=== PATIENT | female | born 1995 | race Caucasian/White ===

== ENCOUNTER 2023-06-28 15:34 | Emergency (ER) | payer OTHER, MEDICAID, SELFPAY ==
[2023-06-28 16:20] VITALS: BP 129/87; PULSE 82; RESP 16; TEMP 36.8; O2SAT 99; BMI 47.6
[2023-06-28 18:02] LABS: Basophils % 0.3 %; Eosinophils # 0.1 10^3/uL (0.0-0.8); Eosinophils % 0.8 %; Hematocrit 43.9 % (37.0-47.0); Hemoglobin 13.8 g/dL (11.5-15.3); Lymphocytes # 3.1 10^3/uL (0.8-4.8); Lymphocytes % 27.8 %; Mean Corpuscular HGB Conc 31.4 g/dL (30.0-36.0); Mean Corpuscular Hemoglobin 28.2 pg (28.0-34.0); Mean Corpuscular Volume 89.8 fl (81-99); Mean Platelet Volume 9.4 fL (7.4-10.4); Monocytes # 0.5 10^3/uL (0.2-0.9); Monocytes % 4.7 %; Neutrophils # 7.34 10^3/uL (1.8-7.7); Nucleated Red Blood Cells % 0 %; Platelet Count 308 10^3/cmm (130-400); Red Blood Count 4.89 10^6/uL (4.1-5.3); Red Cell Distribution Width 13.2 % (12.1-15.1); White Blood Count 11.1 10^3/uL (4.0-10.0)
--- NOTE | 2023-06-28 18:10 | ED_ITS ---
HPI - Abdominal Pain General: Chief Complaint: Abdominal Pain Stated Complaint: chest tightness, upper abd pain Time Seen by Provider: 06/28/23 18:09 History of Present Illness: 27-year-old female comes in today with mid abdominal pain radiating to the right shoulder and back area. Patient reports symptoms have been going on for about 3 to 4 days now. Patient reports some nausea but no vomiting. Patient has used some Ex-Lax with minimal relief of constipation. Patient reports decreased stool output which prompted her to treat with Ex-Lax. Patient appears nontoxic. Patient appears in no pain. Associated Symptoms: Reports constipation and nausea; Denies fever(s) Review of Systems Const: Denies: fever(s) Card: Reports: chest pain Resp: Denies: dyspnea GI: Reports: nausea and constipation : Denies: difficulty voiding Musc: Denies: back pain Skin/Breast: Denies: rash Physical Exam Const: COMMON NORMALS: alert HENMT: COMMON NORMALS: normocephalic HEAD & SCALP: normocephalic MOUTH: Normal oral and palatal mucosa present Neck/C-Spine: COMMON NORMALS: full ROM Resp: COMMON NORMALS: normal respiratory effort and clear to auscultation bilaterally AUSCULTATION: clear to auscultation bilaterally Cardio: COMMON NORMALS: regular rate and regular rhythm RATE: regular rate RHYTHM: regular rhythm : COMMON NORMALS: Yes no CVA tenderness BLADDER/KIDNEY EXAM: Yes no CVA tenderness Back/Pelvis: COMMON NORMALS: no CVA tenderness Extremity: COMMON NORMALS: normal to inspection and full ROM Neuro: SENSORIUM/ORIENTATION: Yes alert Skin: COMMON NORMALS: turgor normal GENERAL SKIN EXAM: turgor normal Course Vital Signs: Vital signs: Vital Signs Temperature 98.2 F 06/28/23 16:20 Pulse Rate 78 06/28/23 18:18 Respiratory Rate 18 06/28/23 18:18 Blood Pressure 153/97 06/28/23 18:18 Pulse Oximetry 94 06/28/23 18:18 Oxygen Delivery Me thod Room Air 06/28/23 18:18 MDM - Abdominal Pain Medical Decision Making 27-year-old female comes in today with complaints of epigastric pain radiating up into her chest, right back, and right shoulder. Patient reports symptoms for about 1 week now. Patient denies any fever. Patient appears nontoxic. Abdomen is soft with some tenderness in the mid epigastric and the right lower quadrant. Bowel sounds are hypoactive. No CVA tenderness is noted. Vital signs are normal. Differential diagnosis includes but not limited to gallbladder disease, pancreatitis, bowel obstruction, constipation, urinary tract infection, renal calculi. Laboratory values were unremarkable except for some mild leukocytosis at 11,000. Urinalysis was clean. CT of the abdomen and pelvis noted some mesenteric lymph nodes but otherwise no other findings. Suspect patient probably has a viral syndrome causing some mesenteric adenitis. Reviewed exam with patient and mother with recommendations for treatment and follow-up. They reported understanding and agreed to plan. Lab Data 06/28/23 17:39 06/28/23 17:39 Labs/Radiology: Radiology Impressions Abdomen/Pelvis CT 06/28/23 18:20 IMPRESSION: 1. Small mesenteric lymph nodes, some of which are clustered along the right psoas musculature. Findings are nonspecific in appearance but can be seen with mesenteric adenitis. 2. Additional findings, as above. COMMENTS: Consistent with the [employer]'s Incidental Findings Committee white paper (J Am Amrita Radiol 2018): Any incidental renal lesion less than 1 cm or classified as too small to characterize, or any incidental cystic renal lesion characterized as simple-appearing, is likely benign. No follow-up imaging is recommended for these lesions per consensus recommendations based on imaging criteria. Laboratory Results WBC 11.1 10^3/uL (4.0-10.0) H 06/28/23 17:39 RBC 4.89 10^6/uL (4.1-5.3) 06/28/23 17:39 Hgb 13.8 g/dL (11.5-15.3) 06/28/23 17:39 Hct 43.9 % (37.0-47.0) 06/28/23 17:39 MCV 89.8 fl (81-99) 06/28/23 17:39 MCH 28.2 pg (28.0-34.0) 06/28/23 17:39 MCHC 31.4 g/dL (30.0-36.0) 06/28/23 17:39 RDW 13.2 % (12.1-15.1) 06/28/23 17:39 Plt Count 308 10^3/cmm (130-400) 06/28/23 17:39 MPV 9.4 fL (7.4-10.4) 06/28/23 17:39 Neut % (Auto) 66.0 % 06/28/23 17:39 Lymph % (Auto) 27.8 % 06/28/23 17:39 [place] % (Auto) 4.7 % 06/28/23 17:39 Eos % (Auto) 0.8 % 06/28/23 17:39 Baso % (Auto) 0.3 % 06/28/23 17:39 Neut # (Auto) 7.34 10^3/uL (1.8-7.7) 06/28/23 17:39 Lymph # (Auto) 3.1 10^3/uL (0.8-4.8) 06/28/23 17:39 [place]alle # (Auto) 0.5 10^3/uL (0.2-0.9) 06/28/23 17:39 Eos # (Auto) 0.1 10^3/uL (0.0-0.8) 06/28/23 17:39 Baso # (Auto) 0.0 10^3/uL (0.0-0.1) 06/28/23 17:39 Nucleated RBC % (auto) 0 % 06/28/23 17: Nucleated RBCs # 0.0 /100WBC 06/28/23 17:39 Sodium 142 mmol/L (136-145) 06/28/23 17:39 Potassium 4.4 mmol/L (3.5-5.1) 06/28/23 17:39 Chloride 105 mmol/L (98-107) 06/28/23 17:39 Carbon Dioxide 24 mmol/L (22-29) 06/28/23 17:39 Anion Gap 17.4 (5-19) 06/28/23 17:39 BUN 10 mg/dL (6-20) 06/28/23 17:39 Creatinine 0.7 mg/dL (0.5-0.9) 06/28/23 17:39 GFR Calculation 100.4 mL/min (90-130) 06/28/23 17:39 Glucose 100 mg/dL (65-115) 06/28/23 17:39 Calculated Osmolality 293 mOsm/kg (285-295) 06/28/23 17:39 Calcium 9.6 mg/dL (8.5-10.5) 06/28/23 17:39 Total Bilirubin 0.2 mg/dL (0.15-1.2) 06/28/23 17:39 AST 14 U/L (0-32) 06/28/23 17:39 ALT 24 U/L (0-33) 06/28/23 17:39 Alkaline Phosphatase 74 U/L (35-105) 06/28/23 17:39 Total Protein 7.6 g/dL (6.6-8.7) 06/28/23 17:39 Albumin 4.5 g/dL (3.5-5.2) 06/28/23 17:39 Globulin 3.1 g/dL (1.3-4.6) 06/28/23 17:39 Lipase 22 U/L (13-60) 06/28/23 17:39 HCG, Qual Negative (Negative) 06/28/23 17:39 Discharge Plan Discharge Patient Disposition: Home Clinical Impression: Mesenteric adenitis Condition: Stable Discharge Orders: Discharge ED (Routine); Ordered 06/28/23 Ordered By: Wade Green Discharge Diet: Usual diet Discharge Activity: Increase activity as tolerated Patient Instructions: Mesenteric Adenitis (ED) Activity Restrictions/Additional Instructions: Mesenteric adenitis is most often a viral infection that runs its course within 2 weeks. He will have abdominal pain and some mild nausea. You can use acetaminophen or ibuprofen as needed for pain. Drink plenty of water and fluids. Increase diet as tolerated. Follow-up with primary care for further instructions. Return to the ER for worsening symptoms such as blood in vomit or stool, fever greater than 100.4, severe abdominal pain localizing to the right lower quadrant. Coding Level of Care Code ED Lead Systems Engineer for Constance Daley
[2023-06-28 18:18] VITALS: BP 153/97; PULSE 78; RESP 18; O2SAT 94
--- NOTE | 2023-06-28 18:20 | CTR_ITS ---
PROCEDURE INFORMATION: Exam: CT Abdomen And Pelvis With Contrast Exam date and time: 06/28/2023 6:46 PM Age: 27 years old Clinical indication: Abdominal pain; Patient HX: Epigastric pain with constipation x 2 days; Additional info: Epigastric pain, constipation TECHNIQUE: Imaging protocol: Computed tomography of the abdomen and pelvis with contrast. Axial, coronal and sagittal reformatted images were created and reviewed. Radiation optimization: All CT scans at this facility use at least one of these dose optimization techniques: automated exposure control; mA and/or kV adjustment per patient size (includes targeted exams where dose is matched to clinical indication); or iterative reconstruction. Contrast material: OMNI 350; Contrast volume: 100 ml; Contrast route: INTRAVENOUS (IV); REPORTING DATA: Count of CT and Cardiac NM exams in prior 12 months: This patient has received 0 known CTs and 0 known cardiac nuclear medicine studies in the 12 months prior to the current study. COMPARISON: No relevant prior studies available. RADIATION DOSE METRICS: Total DLP (mGy-cm): 1115.69 FINDINGS: Liver: Mild hepatomegaly. Mild, diffuse hepatic steatosis. Gallbladder and bile ducts: No radiodense gallstones. No biliary ductal dilatation. Pancreas: Unremarkable. Spleen: Unremarkable. Adrenal glands: Normal. No mass. Kidneys and ureters: 1 cm left renal cyst (no follow-up is indicated based on the imaging appearance). No radiodense calculi. No hydronephrosis. Stomach and bowel: No bowel wall thickening. No obstruction. No pneumatosis. Appendix: Normal. Intraperitoneal space: No free fluid. No organized fluid collection. No free air. Vasculature: Unremarkable. No aneurysm. Lymph nodes: Small mesenteric lymph nodes, some of which are clustered along the right psoas musculature. No pathologically enlarged lymph nodes. Urinary bladder: Unremarkable as visualized. Reproductive: Unremarkable. Bones/joints: No acute osseous abnormality. Mild degenerative changes. Soft tissues: Small, fat containing umbilical hernia. Small, fat containing umbilical hernia. CT/CT abdomen pelvis w con* [id number] IMPRESSION: 1. Small mesenteric lymph nodes, some of which are clustered along the right psoas musculature. Findings are nonspecific in appearance but can be seen with mesenteric adenitis. 2. Additional findings, as above. COMMENTS: Consistent with the [employer]'s Incidental Findings Committee white paper (J Am Amrita Radiol 2018): Any incidental renal lesion less than 1 cm or classified as too small to characterize, or any incidental cystic renal lesion characterized as simple-appearing, is likely benign. No follow-up imaging is recommended for these lesions per consensus recommendations based on imaging criteria.
[2023-06-28 18:24] LABS: Alanine Aminotransferase 24 U/L (0-33); Albumin Level 4.5 g/dL (3.5-5.2); Alkaline Phosphatase 74 U/L (35-105); Anion Gap 17.4 (5-19); Aspartate Amino Transferase 14 U/L (0-32); Blood Urea Nitrogen 10 mg/dL (6-20); Calcium 9.6 mg/dL (8.5-10.5); Carbon Dioxide 24 mmol/L (22-29); Chloride 105 mmol/L (98-107); Globulin 3.1 g/dL (1.3-4.6); Glomerular Filtration Rate 100.4 mL/min (90-130); Glucose 100 mg/dL (65-115); Lipase 22 U/L (13-60); Osmolality Calculated 293 mOsm/kg (285-295); Potassium 4.4 mmol/L (3.5-5.1); Sodium 142 mmol/L (136-145); Total Bilirubin 0.2 mg/dL (0.15-1.2); Total Protein 7.6 g/dL (6.6-8.7)
[2023-06-28 18:28] LABS: HCG, Serum Qual Negative (Negative)
[2023-06-28] MEDS: sodium chloride 0.9% 500 ML 999 ML IV (18:36)
[2023-06-28] MEDS: iohexol 350 mg/mL 500 mL Btl (per mL) IV (18:50)
== END 2023-06-28 19:45 | disposition home or self-care (01) ==
PROVIDERS: Physician Assistant; Emergency Provider Nurse Practitioner Family
DX: I88.0 Nonspecific mesenteric lymphadenitis (principal)
CPT/HCPCS: 36415; 74177; 80053; 83690; 84703; 85025; 99285; J7040; Q9967

== ENCOUNTER 2024-01-07 17:39 | Emergency (ER) | payer OTHER, SELFPAY ==
[2024-01-07 17:46] VITALS: BP 146/91; PULSE 109; RESP 16; TEMP 36.6; O2SAT 100; BMI 47.2
--- NOTE | 2024-01-07 18:08 | W.ED.WOUNDLC ---
HPI - Wound/Laceration General: Chief Complaint: Wound/Laceration Stated Complaint: right hand lac Time Seen by Provider: 01/07/24 17:59 History of Present Illness: 28-year-old female comes in today with a injury to the right hand. Patient reached for a knife that had fallen and accidentally stuck herself between her second and third digit of her right hand in the webbing. Patient denies any chronic medical problems. Patient appears nontoxic. Patient moves fingers without difficulty. Review of Systems General: Reports: 10 or more systems reviewed and unremarkable except in HPI and below Skin/Breast: Reports: new lesions (Right hand between the second and third digit) [facility] ED PFSH: Medical History (Updated 01/07/24 @ 19:03 by DIANE Calhoun) Allergic rhinitis due to allergen Morbid obesity with BMI of 45.0-49.9, adult Nicotine dependence due to vaping non-tobacco product Surgical History (Updated 07/16/23 @ 14:19 by Tim Landaverde MD) No pertinent past surgical history Family History (Updated 07/16/23 @ 14:12 by Grace España LPN) Father No problems noted. Mother Diabetes Prediabetic Hep C w/o coma, chronic Social History (Updated 07/16/23 @ 14:13 by Grace España LPN) Second hand smoke exposure: No Alcohol intake: former Substance/Drug Use: current Substance/Drug use frequency: few times a week Female Reproductive History: Date of last menstrual period: 12/19/23 Physical Exam Const: COMMON NORMALS: alert HENMT: COMMON NORMALS: normocephalic HEAD & SCALP: normocephalic Neck/C-Spine: COMMON NORMALS: full ROM Resp: COMMON NORMALS: normal respiratory effort and clear to auscultation bilaterally AUSCULTATION: clear to auscultation bilaterally Cardio: COMMON NORMALS: regular rate and regular rhythm RATE: regular rate RHYTHM: regular rhythm Extremity: COMMON NORMALS: normal to inspection Neuro: SENSORIUM/ORIENTATION: Yes alert Skin: TRAUMA: laceration (1 cm right hand webbing second and third digit) Procedures Laceration Laceration 1: Site: hand Side (If applicable): right Size (cm): 1 Description: linear Depth: simple, single layer Local Anesthetic: lidocaine 1% and with epi Amount of anesthesia used (mL): 2 Pre-repair: wound explored and irrigated extensively Skin layer closed with: nylon Size (cm): 5-0 Number of sutures: 1 Technique: horizontal mattress Course Vital Signs: Vital signs: Vital Signs Temperature 97.9 F 01/07/24 17:46 Pulse Rate 109 H 01/07/24 17:46 Respiratory Rate 16 01/07/24 17:46 Blood Pressure 146/91 01/07/24 17:46 Pulse Oximetry 100 01/07/24 17:46 MDM - Wound/Laceration Medical Decision Making 28-year-old female comes in today with injury to the right hand between the second and third digit. Patient has a 1 cm laceration to the webbing between the second and third digit of the right hand. Patient has good range of motion of the hand. No neurovascular dysfunction is noted. No tendon dysfunction is noted. No foreign bodies noted. No fractures noted. Wound was thoroughly irrigated with saline. Wound was closed with 1 horizontal mattress suture. Reviewed exam with patient with recommendations for keeping the wound dry following up for suture removal in 7 to 10 days. Differential diagnosis includes but not limited to foreign body, laceration, fracture, need for prophylaxis tetanus. Patient cannot recall her tetanus vaccine and it was updated. Patient be kept on cephalexin 500 twice a day for the next 7 days. Patient reported understanding of care plan need for follow-up or return to the ER. No radiology studies performed this visit Discharge Plan Discharge Patient Disposition: Home Clinical Impression: Laceration Condition: Stable Prescriptions: New cephalexin 500 mg capsule 500 mg PO BID 7 Days Qty: 14 0RF Discharge Orders: Discharge ED (Routine); Ordered 01/07/24 Ordered By: Wade Green Referrals: Tim Landaverde MD [Primary Care Provider] - Patient Instructions: Laceration (ED) Activity Restrictions/Additional Instructions: Keep wound clean and dry. Is very important keep the wound as dry as possible over the next 7 to 10 days until sutures are removed. Follow-up with primary care in 1 week for recheck. Return to ED for new concerns. Coding Level of Care Code ED Supervisor Lead Refinery for Constance Daley
[2024-01-07] MEDS: cephALEXin 500 mg Capsule PO (18:35)
[2024-01-07] MEDS: tetanus-dipt-pertussis 0.5 mL SDV IM (18:35)
[2024-01-07 19:18] VITALS: BP 146/91; PULSE 109; RESP 16; TEMP 36.6; O2SAT 100
== END 2024-01-07 19:19 | disposition home or self-care (01) ==
PROVIDERS: Emergency Provider Nurse Practitioner Family; PCP Family Medicine Adult Medicine
DX: S61.411A Laceration without foreign body of right hand, initial encounter (principal); W26.0XXA Contact with knife, initial encounter; Z23 Encounter for immunization
CPT/HCPCS: 12001; 90471; 90715; 99283

== ENCOUNTER → 2024-06-09 13:40 | Outpatient (BNVA) | payer BC, SELFPAY | PROVIDERS: PCP Family Medicine Adult Medicine; Visit Provider Family Medicine Adult Medicine | DX: Z00.00 Encounter for general adult medical examination without abnormal findings (principal); E66.01 Morbid (severe) obesity due to excess calories; Z68.42 Body mass index [BMI] 45.0-49.9, adult; F17.200 Nicotine dependence, unspecified, uncomplicated | CPT/HCPCS: 80053; 80061; 84443; 85025; 87624 ==

== ENCOUNTER → 2025-06-30 14:32 | Outpatient (BNVA) | payer BC, SELFPAY | PROVIDERS: PCP Family Medicine | DX: E78.1 Pure hyperglyceridemia (principal) | CPT/HCPCS: 80053; 80061; 85025 ==